=== PATIENT | male | born 1960 | race Caucasian/White ===

== ENCOUNTER 2018-06-22 11:47 | Emergency (ER) | payer OTHER ==
[2018-06-22 11:59] VITALS: BP 101/69; PULSE 61; BMI 23.6
--- NOTE | 2018-06-22 12:31 | PDOC ---
History of Present Illness - General Chief Complaint: Injury Stated Complaint: LEFT HAND THUMB INJURY Time Seen by Provider: 06/22/18 12:00 History Source: Patient - History of Present Illness Occurred: reports: this morning Upper Extremity Pain Location: left: thumb Method of Injury: reports: other Past History - Past Medical History Allergies/Adverse Reactions: Allergies Allergy/AdvReac Type Severity Reaction Status Date / Time No Known Allergies Allergy Unverified 06/22/18 11:59 Home Medications: Ambulatory Orders Cephalexin [Keflex] 500 mg PO Q6H #27 capsule 06/22/18 COPD: No - Immunization History Immunization Up to Date: No - Suicide/Smoking/Psychosocial Hx Smoking History: Never smoked Review of Systems - Review of Systems Neurological: No: Numbness, Tingling, Weakness *Physical Exam - Vital Signs Last Vital Signs Temp Pulse Resp BP Pulse Ox 61 18 101/69 97 06/22/18 11:56 06/22/18 11:56 06/22/18 11:56 06/22/18 11:56 - Physical Exam General Appearance: Yes: Appropriately Dressed. No: Apparent Distress HEENT: positive: Normal Voice Neck: positive: Supple Respiratory/Chest: negative: Respiratory Distress Extremity: positive: Other (~3 cm mostly linear lac alongside dorsum of L thumb crossing IP joint w/ ?gross tendon injury though both passive and active PATY, sensation intact) Integumentary: positive: Dry, Warm Neurologic: positive: Fully Oriented, Alert, Normal Mood/Affect Procedures - Laceration/Wound Repair Left Finger 1st digit Wound Length: 2.6 to 5.0 cm Wound Explored: clean Wound's Depth, Shape: into muscle Irrigated w/ Saline: Yes Betadine Prep: Yes (20 min betadine soak) Anesthesia: 1% Lidocaine Amount of Anesthetic (ccs): 10 (including finger block ) Wound Repaired With: Sutures Suture Size/Type: 4:0 (1) Number of Sutures: 10 Sterile Dressing Applied: Yes Medical Decision Making - Medical Decision Making 06/22/18 12:30 58-year-old male, no significant history, 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 Denies any sensory changes. Unsure of tetanus status per pt. After local wound care, including betadine soak for 20 minutes, there is gross extensor tendon injury on wound inspection per discussion with Dr. Vitale who also inspected wound. Pictures of injury were sent to Dr. Navarro of hand, who states pt most likely have a partial extensor tendon injury and recommends closing wound in ED and have patient following up with him on Saturday. 06/22/18 13:43 Pt s/p wound closure with dressing in place. Splint also given for further protection of partial extensor tendon injury. Tetanus updated and first dose of Keflex given in ED. Patient was discharged in stable condition to follow-up with hand on Saturday. Strict return precaution given to pt 06/22/18 13:48 *DC/Admit/Observation/Transfer Diagnosis at time of Disposition: Partial tear of tendon Finger laceration Qualifiers: Encounter type: initial encounter Finger: thumb Damage to nail status: without damage Foreign body presence: without foreign body Laterality: left Qualified Code(s): S61.012A - Laceration without foreign body of left thumb without damage to nail, initial encounter - Discharge Dispostion Disposition: HOME Condition at time of disposition: Good - Prescriptions Prescriptions: Cephalexin [Keflex] 500 mg PO Q6H #27 capsule - Referrals Referrals: Patrice Liang MD [Staff Physician] - - Patient Instructions Printed Discharge Instructions: Laceration Repair, Finger Extensor Tendon Injury Additional Instructions: Keep dressing in place for at least 24 hours after which one can be opened to air. You can gently clean wound with mild soap and water after 24 hours to prevent crusting over the suture knots. Given that your injury is located over your thumb joint and you have a partial tear of your tendon in that finger. You mostly want to keep wound covered and keep splint in place till you can see Dr. Liang of surgery on Saturday. Call Saturday for an appointment Return in 2 days for redness, discharge or fever Take antibiotics as directed You were given a tetanus injection today - Post Discharge Activity
[2018-06-22] MEDS ORDERED: IBUPROFEN 400 MG TABLET (FP) PO ONE ×2 (12:55→13:13)
[2018-06-22] MEDS ORDERED: CEPHALEXIN MONOHYDRATE 500 MG CAPSULE (UD) ONE (13:30)
[2018-06-22] MEDS ORDERED: CEPHALEXIN MONOHYDRATE 500 MG CAPSULE (UD) PO ONE (13:31)
[2018-06-22] MEDS ORDERED: DIPHTH,PERTUSS(ACELL),TET 0.5 ML DISP.SYRIN IM ONE (13:31)
== END 2018-06-22 13:43 | disposition home or self-care (01) ==
LOC: JERFT 11:47
PROC: 0HQGXZZ Repair Left Hand Skin, External Approach (ICD-10-PCS; principal; 2018-06-22)
PROC: 3E0234Z Introduction of Serum, Toxoid and Vaccine into Muscle, Percutaneous Approach (ICD-10-PCS; 2018-06-22)
PROC: 0HQGXZZ Repair Left Hand Skin, External Approach (ICD-10-PCS; 2018-06-22)
DX: S61.012A Laceration without foreign body of left thumb without damage to nail, initial encounter (principal); S56.322A Laceration of extensor or abductor muscles, fascia and tendons of left thumb at forearm level, initial encounter; W29.8XXA Contact with other powered hand tools and household machinery, initial encounter; Y93.89 Activity, other specified; Y92.89 Other specified places as the place of occurrence of the external cause; Y99.0 Civilian activity done for income or pay
CPT/HCPCS: 90715; 99282-25

== ENCOUNTER 2018-06-25 15:56 | Day surgery (SDC) | payer OTHER ==
[2018-06-25 16:05] VITALS: BMI 23.6
[2018-06-25] MEDS ORDERED: AMPICILLIN NA/SULBACTAM NA 3 GM in SODIUM CHLORIDE 100 ML IVPB ONE (16:12)
--- NOTE | 2018-06-25 16:12 | PDOC ---
History of Present Illness - History of Present Illness Initial Comments: 06/25/18 17:42 The patient is a 58 year old male, with a significant past medical history of extensor tendon injury, who presents to the emergency department at the request of Dr. Liang for a tendon repair today of his hand. The patient denies chest pain, shortness of breath, headache and dizziness. The patient denies fever, chills, nausea, vomit, diarrhea and constipation.The patient denies dysuria, frequency, urgency and hematuria. Allergies: NKDA Past surgical history: none reported Social history: denies ETOH and tobacco <Lisa Landers - Last Filed: 06/25/18 18:28> - General History Source: Patient Exam Limitations: No Limitations <Olinda Bautista - Last Filed: 06/25/18 18:38> - General Chief Complaint: Injury Stated Complaint: RECHECK, FINGER INJURY Time Seen by Provider: 06/25/18 16:12 Past History <Lisa Landers - Last Filed: 06/25/18 18:28> - Past Medical History COPD: No - Immunization History Immunization Up to Date: No - Suicide/Smoking/Psychosocial Hx Smoking History: Never smoked Have you smoked in the past 12 months: No Information on smoking cessation initiated: No Hx Alcohol Use: No Drug/Substance Use Hx: No Substance Use Type: None <Olinda Bautista - Last Filed: 06/25/18 18:38> - Past Medical History Allergies/Adverse Reactions: Allergies Allergy/AdvReac Type Severity Reaction Status Date / Time No Known Drug Allergies Allergy Verified 06/25/18 16:41 MOLDY CHEESE Allergy Uncoded 06/25/18 16:40 Home Medications: Ambulatory Orders Cephalexin [Keflex] 500 mg PO Q6H #27 capsule 06/22/18 Review of Systems - Review of Systems Able to Perform ROS?: Yes Comments:: 06/25/18 18:28 CONSTITUTIONAL: Absent: fever, no chills, no fatigue EYES: Absent: visual changes ENT: Absent: ear pain, no sore throat CARDIOVASCULAR: Absent: chest pain, no palpitations RESPIRATORY: Absent: cough, no SOB GASTROINTESTINAL: Absent: abdominal pain, no nausea, no vomiting, no constipation, no diarrhea GENITOURINARY: Absent: dysuria, no frequency, no hematuria MUSCULOSKELETAL: Absent: back pain, no arthralgia, no myalgia SKIN: Absent: rash NEURO: Absent: headache <Lisa Landers - Last Filed: 06/25/18 18:28> *Physical Exam - Vital Signs Last Vital Signs Temp Pulse Resp BP Pulse Ox 98 F 79 16 133/60 100 06/25/18 16:03 06/25/18 16:03 06/25/18 16:03 06/25/18 16:03 06/25/18 16:03 - Physical Exam Comments: 06/25/18 18:28 GENERAL: The patient is in no acute distress. HEAD: Normal with no signs of trauma. EYES: PERRLA, EOMI, sclera anicteric, conjunctiva clear. ENT: Ears normal, nares patent, oropharynx clear without exudates. Moist mucous membranes. NECK: Normal range of motion, supple without lymphadenopathy, JVD, or masses. LUNGS: Breath sounds equal, clear to auscultation bilaterally. No wheezes, and no crackles. HEART:Regular rate and rhythm, normal S1 and S2 without murmur, rub or gallop. ABDOMEN: Soft, nontender, normoactive bowel sounds. No guarding, no rebound. No masses palpable. EXTREMITIES: (+) left thumb laceration to dorsal aspect. Left hand swelling. Left hand is midly tender surrounding the thumb. Otherwise, Normal range of motion No clubbing or cyanosis. No erythema, or tenderness. NEUROLOGICAL: Cranial nerves II through XII grossly intact. Normal speech. No focal neurological deficits. MUSCULOSKELETAL: Back non-tender to palpation, no CVA tenderness SKIN: (+) left thumb laceration. Warm, Dry, normal turgor, no rashes or lesions noted. <Lisa Landers - Last Filed: 06/25/18 18:28> - Vital Signs Last Vital Signs Temp Pulse Resp BP Pulse Ox 98 F 79 16 133/60 100 06/25/18 16:03 06/25/18 16:03 06/25/18 16:03 06/25/18 16:03 06/25/18 16:03 <Olinda Bautista - Last Filed: 06/25/18 18:38> ED Treatment Course - LABORATORY CBC & Chemistry Diagram: 06/25/18 16:30 06/25/18 16:30 - ADDITIONAL ORDERS Additional order review: Laboratory Results 06/25/18 06/25/18 06/25/18 16:30 16:30 16:30 PT with INR 10.70 INR 0.95 Sodium 143 Potassium 4.2 Chloride 106 Carbon Dioxide 27 Anion Gap 10 BUN 11 Creatinine 0.9 Creat Clearance w eGFR > 60 Random Glucose 89 Calcium 9.5 Total Bilirubin 0.8 AST 28 ALT 46 Alkaline Phosphatase 55 Total Protein 7.6 Albumin 4.4 Blood Type B POSITIVE 06/25/18 16:30 RBC 5.41 MCV 88.8 MCHC 34.2 RDW 13.0 MPV 8.1 Neutrophils % 60.5 Lymphocytes % 30.5 Monocytes % 7.5 Eosinophils % 1.0 Basophils % 0.5 - Medications Given in the ED: ED Medications Discontinued Medications Generic Name Dose Route Start Last Admin Trade Name Freq PRN Reason Stop Dose Admin Ampicillin Sodium/Sulbactam 100 mls @ 200 mls/hr 06/25/18 16:12 06/25/18 17: 00 Sodium 3 gm/ Sodium Chloride IVPB 06/25/18 16:41 200 mls/hr ONCE ONE Administration <Lisa Landers - Last Filed: 06/25/18 18:28> - LABORATORY CBC & Chemistry Diagram: 06/25/18 16:30 06/25/18 16:30 <Olinda Bautista - Last Filed: 06/25/18 18:38> Medical Decision Making - Medical Decision Making 06/25/18 18:37 Laboratory Tests 06/25/18 06/25/18 06/25/18 16:30 16:30 16:30 WBC 8.3 Hgb 16.4 Hct 48.1 Plt Count 242 INR 0.95 BUN 11 Creatinine 0.9 58 yo M s/p circular saw injury to the left thumb with partial tendon injury Pt sent to the ER for transfer for operative repair Clinical Impression: tendon injury, repeat presentation <Olinda Bautista - Last Filed: 06/25/18 18:38> *DC/Admit/Observation/Transfer - Attestations Scribe Attestion: 06/25/18 17:43 Documentation prepared by Lisa Landers, acting as auditor medical claims for Olinda Bautista MD <Lisa Landers - Last Filed: 06/25/18 18:28> - Discharge Dispostion Decision to Admit order: Yes <Olinda Bautista - Last Filed: 06/25/18 18:38> Diagnosis at time of Disposition: Finger laceration - Discharge Dispostion Condition at time of disposition: Stable
[2018-06-25] MEDS ORDERED: IBUPROFEN 600 MG TABLET (FP) PO PRN ×2 (16:37→23:09)
[2018-06-25] MEDS ORDERED: MORPHINE SULFATE 2 MG/ML VIAL IVPUSH PRN ×2 (16:37→23:09)
[2018-06-25] MEDS ORDERED: LACTATED RINGERS SOLUTION 1,000 ML IV SCH (16:45)
[2018-06-25 16:57] LABS: BASO % 0.5 % (0-2.0); HEMATOCRIT 48.1 % (35.4-49); HEMOGLOBIN 16.4 GM/dL (11.7-16.9); LYMPH % 30.5 % (8-40); MCH 30.4 pg (25.7-33.7); MCHC 34.2 g/dl (32.0-35.9); MEAN CELL VOLUME 88.8 fl (80-96); MEAN PLT VOLUME 8.1 fl (7.5-11.1); MONO % 7.5 % (3.8-10.2); NEUT % 60.5 % (42.8-82.8); PLATELET COUNT 242 K/MM3 (134-434); RBC 5.41 M/mm3 (4.00-5.60); WHITE BLOOD COUNT 8.3 K/mm3 (4.0-10.0)
[2018-06-25 17:04] LABS: ALBUMIN 4.4 g/dl (3.4-5.0); ANION GAP 10 (8-16); BILIRUBIN,TOTAL 0.8 mg/dL (0.2-1.0); BLOOD UREA NITROGEN 11 mg/dL (7-18); CALCIUM 9.5 mg/dL (8.5-10.1); CHLORIDE 106 mmol/L (98-107); CO2 27 mmol/L (21-32); CREATININE 0.9 mg/dL (0.7-1.3); GLUCOSE,RANDOM 89 mg/dL (74-106); SGPT/ALT 46 U/L (12-78); SODIUM 143 mmol/L (136-145); TOT PROT 7.6 g/dl (6.4-8.2)
[2018-06-25 17:05] LABS: ALK PHOS 55 U/L (45-117)
[2018-06-25 17:10] LABS: INR 0.95 (0.83-1.09); PROTHROMBIN TIME (PATIENT) 10.7 SEC (9.7-13.0)
[2018-06-25 17:18] LABS: POTASSIUM 4.2 mmol/L (3.5-5.1); SGOT/AST 28 U/L (15-37)
--- NOTE | 2018-06-25 17:35 | HP ---
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 Denies any sensory changes. Had a tetanus booster 06/22/2018. After local wound care, including betadine soak for 20 minutes, there is gross extensor tendon injury. The thumb could not be extended. We were scheduled to assess and treat. History Source: Patient, Medical Record Limitations to Obtaining History: No Limitations - Smoking History Smoking history: Never smoked Have you smoked in the past 12 months: No - Alcohol/Substance Use Hx Alcohol Use: No Home Medications - Allergies Allergies/Adverse Reactions: Allergies Allergy/AdvReac Type Severity Reaction Status Date / Time No Known Drug Allergies Allergy Verified 06/25/18 16:41 MOLDY CHEESE Allergy Uncoded 06/25/18 16:40 - Home Medications Home Medications: Ambulatory Orders Cephalexin [Keflex] 500 mg PO Q6H #27 capsule 06/22/18 Review of Systems - Review of Systems Constitutional: denies: Chills, Fever Eyes: denies: Blurred Vision, Recent Change in Vision HENT: denies: Difficult Swallowing, Throat Pain Neck: denies: Decreased ROM, Lumps, Tenderness Cardiovascular: denies: Chest Pain, Palpitations Respiratory: denies: Cough, SOB Gastrointestinal: denies: Abdominal Pain, Constipation, Diarrhea Genitourinary: denies: Burning, Discharge, Dysuria Breasts: reports: No Symptoms Reported. denies: Pain Musculoskeletal: reports: Extremity Pain (left hand). denies: Back Pain, Muscle Pain, Muscle Weakness Integumentary: denies: Eczema, Erythema Neurological: denies: Seizure, Syncope Endocrine: denies: Unexplained Weight Gain, Unexplained Weight Loss Hematology/Lymphatic: denies: Easily Bruised, Excessive Bleeding Psychiatric: denies: Anxiety, Depression Physical Examination Vital Signs: Vital Signs Temperature 98 F 06/25/18 16:03 Pulse Rate 79 06/25/18 16:03 Respiratory Rate 16 06/25/18 16:03 Blood Pressure 133/60 06/25/18 16:03 O2 Sat by Pulse Oximetry (%) 100 06/25/18 16:03 Vital Signs Period Temp Pulse Resp BP Sys/Lopez Pulse Ox Last 24 Hr 98 F 79 16 133/60 100 Constitutional: Yes: Well Nourished, No Distress, Calm Eyes: Yes: Conjunctiva Clear, EOM Intact HENT: Yes: Atraumatic, Normocephalic Neck: Yes: Supple, Trachea Midline Cardiovascular: Yes: Regular Rate and Rhythm, S1, S2 Respiratory: Yes: Regular, CTA Bilaterally Gastrointestinal: Yes: Normal Bowel Sounds, Soft ...Rectal Exam: Yes: Deferred Renal/: No: CVA Tenderness - Right Musculoskeletal: No: Joint Swelling, Muscle Pain, Muscle Weakness Extremities: No: Cool, Cyanosis Edema: Yes Edema: LUE: 1+ Peripheral Pulses WNL: Yes Peripheral Pulses: Left Radial: 2+, Right Radial: 2+, Left Doralis Pedis: 2+, Right Dorsalis Pedis: 2+ Integumentary: No: Jaundice Wound/Incision: Yes: Clean/Dry, Well Approximated, Sutures Intact, Dressing Dry and Intact (left thumb splint) Labs: CBC, BMP 06/25/18 16:30 06/25/18 16:30 Imaging - Results X-ray: Report Reviewed, Image Reviewed Problem List - Problems (1) Unspecified injury of extensor or abductor muscles, fascia and tendons of left thumb at forearm level, sequela Assessment/Plan: 58yo RHD male with Left thumb laceration zone III-IV NPO and IVF hydration IV antibiotics Discussed with patient risks, benefits and alternatives of Exploration and debridement of left thumb wound, repair of extensor tendons, including but not limited to bleeding, infection, injury to adjacent structures, loss of function , amputation, need for further procedures; alternatives include antibiotics, delayed or no surgery - risks of this include failure of nonoperative therapy, loss of function, amputation, recurrence. Patient desires to proceed with operation - will take to OR for above. Informed consent signed for same. Code(s): S56.302S - UNSP INJ EXTN/ABDR MUSC/FASC/TEND OF L THM AT FORARM LV, SQLA (2) Laceration of extensor muscle, fascia and tendon of left thumb at wrist and hand level, initial encounter Code(s): S66.222A - LACERAT EXTENSOR MUSC/FASC/TEND L THM AT WRS/HND LV, INIT (3) Other injury of extensor or abductor muscles, fascia and tendons of left thumb at forearm level, initial encounter Code(s): S56.392A - INJ EXTN/ABDR MUSC/FASC/TEND OF L THM AT FORARM LV, INIT
--- NOTE | 2018-06-25 17:50 | OP ---
Operative Note - Note: Operative Date: 06/25/18 Pre-Operative Diagnosis: Laceration of Left thumb zone III Operation: Exploration of left thumb laceration, Debridement for devitalized tissue, Primary repair of 60% laceration of extensor pollicis longus tendon Findings: 60% laceration of left extensor pollicis longus. irregular cut with ethibond modified mojica repair. TP 250mmHg TT 25mins Post-Operative Diagnosis: Same as Pre-op Surgeon: Patrice Liang Anesthesiologist/SR. PAYROLL MANAGER: Jere Buck Anesthesia: General, Local (0.5% marcaine 20ml) Specimens Removed: none Estimated Blood Loss (mls): 2 Instrument used (Debridements only): scissors and scalpel Fluid Volume Replaced (mls): 300 (LR) Operative Report Dictated: Yes
--- NOTE | 2018-06-25 17:51 | DS ---
Physical Examination Vital Signs: Vital Signs Temperature 98 F 06/25/18 16:03 Pulse Rate 79 06/25/18 16:03 Respiratory Rate 16 06/25/18 16:03 Blood Pressure 133/60 06/25/18 16:03 O2 Sat by Pulse Oximetry (%) 100 06/25/18 16:03 Vital Signs Period Temp Pulse Resp BP Sys/Lopez Pulse Ox Last 24 Hr 98 F 79 16 133/60 100 Findings/Remarks: Stable postoperatively. pain is controlled. voiding. Constitutional: Yes: Well Nourished, No Distress, Calm Eyes: Yes: Conjunctiva Clear, EOM Intact HENT: Yes: Atraumatic, Normocephalic Neck: Yes: Supple, Trachea Midline Cardiovascular: Yes: Regular Rate and Rhythm, S1, S2 Respiratory: Yes: Regular, CTA Bilaterally Gastrointestinal: Yes: Normal Bowel Sounds, Soft. No: Tenderness ...Rectal Exam: Yes: Deferred Renal/: No: CVA Tenderness - Left, CVA Tenderness - Right Musculoskeletal: No: Muscle Pain, Muscle Weakness Extremities: No: Cool, Cyanosis Edema: Yes Edema: LUE: 1+ Peripheral Pulses WNL: Yes Peripheral Pulses: Left Radial: 2+, Right Radial: 2+, Left Doralis Pedis: 2+, Right Dorsalis Pedis: 2+ Integumentary: Yes: Incision. No: Jaundice, Rash, Tattoos Wound/Incision: Yes: Clean/Dry, Well Approximated, Dressing Dry and Intact Neurological: Yes: Alert, Oriented Psychiatric: Yes: Alert, Oriented Labs: CBC, BMP 06/25/18 16:30 06/25/18 16:30 Discharge Summary Reason For Visit: RECHECK, FINGER INJURY Current Active Problems Finger laceration (Acute) Laceration of extensor muscle, fascia and tendon of left thumb at wrist and hand level, initial encounter (Acute) Other injury of extensor or abductor muscles, fascia and tendons of left thumb at forearm level, initial encounter (Acute) Unspecified injury of extensor or abductor muscles, fascia and tendons of left thumb at forearm level, sequela (Acute) Procedures: Principal: Left thumb repair of extensor tendon Other Procedures: IV antibiotics Hospital Course: Admitted for an urgent surgical procedure. Uneventful surgical repair. stable for discharge home Condition: Improved - Instructions Diet, Activity, Other Instructions: Postoperative instructions: You had a Repair of extensor tendon left Thumb on 06/25/[address] Patrice Liang of [facility]. Activity: Resume your usual activities gradually, but no heavy exertion or lifting more than 10-15 pounds for 4-6 weeks. Please keep splint in place clean and dry until first followup appointment. Eat lightly at first, but advance to your usual diet as tolerated. Pain: For pain, you may use and alternate Tylenol (acetaminophen) and/or ibuprofen every 6 hours each as needed; this means that you can take one OR the other at 3-hour intervals. If you are prescribed a Tylenol/narcotic combination for severe pain, use it instead of plain Tylenol as needed and switch back when your pain starts decreasing. Do not take more than 4000mg of acetaminophen in a day. Take medications as prescribed or indicated on the labeling. Follow-up: You will need to identify a hand, orthopedic, or plastic surgeon to follow-up with consider contacting you insurance carrier. My office will provide all records to you designated provider. Call Dr. Liang' office at . Call the office if you have: * increasing pain not responsive to pain medication * fever of 101F or higher * unusual or increasing bleeding or drainage from wounds * increasing redness or swelling at wound sites Also, see your primary medical doctor within 1-2 weeks. Disposition: HOME - Home Medications Comprehensive Discharge Medication List: Ambulatory Orders Cephalexin [Keflex] 500 mg PO Q6H #27 capsule 06/22/18
[2018-06-25] MEDS ORDERED: ceFAZolin SODIUM 1 GM VIAL IVPB ONE (21:15)
[2018-06-25] MEDS ORDERED: PROPOFOL 20 ML ONE ×2 (21:21→21:22)
[2018-06-25] MEDS ORDERED: ceFAZolin SODIUM 1 GM VIAL ONE (21:23)
[2018-06-25] MEDS ORDERED: MIDAZOLAM HCL 2 MG/2 ML SINGLE DOSE VIAL ONE (21:54)
[2018-06-25] MEDS ORDERED: ACETAMINOPHEN 325 MG TABLET (FP) PO PRN (22:19)
[2018-06-25] MEDS ORDERED: ONDANSETRON 4 MG/2 ML VIAL IVPUSH PRN (22:19)
[2018-06-25 23:09] VITALS: TEMP 98.2
[2018-06-25 23:16] VITALS: BP 129/69; PULSE 50
--- NOTE | 2018-06-26 00:01 | OP ---
DATE OF OPERATION: 06/25/2018 PREOPERATIVE DIAGNOSIS: Laceration zone 3, left thumb. POSTOPERATIVE DIAGNOSIS: Laceration zone 3, left thumb. PROCEDURE: Exploration left thumb laceration, debridement of devitalized tissue, primary repair of 60% irregular laceration extensor pollicis longus tendon. ATTENDING SURGEON: Patrice Liang M.D. SENIOR IT SECURITY ANALYST: None. ANESTHESIOLOGIST: Jere Buck D.O. ANESTHESIA: General with local. Local consisted of 1 % Marcaine as well as 20 mL administered in the area block fashion. ESTIMATED BLOOD LOSS: 2 mL TOURNIQUET PRESSURE: 250 mmHg TOURNIQUET TIME: 25 minutes INTRAVENOUS FLUID ADMINISTERED: 300 mL crystalloid, it was LR INSTRUMENTS USED FOR DEBRIDEMENT: Scissors and scalpel BRIEF FINDINGS: There was a 60% irregular laceration of the dorsum zone 3, extensor pollicis longus tendon irregular cut, was repaired with Ethibond in a modified Fair fashion burying the knots. Care was taken to splint the patient in neutral extension thumb spica. INDICATION: The patient is a 58-year-old male presenting in the subsequent followup for left thumb in zone 3. He was seen 3 days ago. 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 He is right hand dominant. He was counseled regarding risks, benefits, and alternatives to surgical repair, signed informed consent, was taken to procedure. BRIEF PROCEDURE: Patient is brought to the operating room, placed in the supine position on the operating table with the left arm extended at 90 degrees perpendicular to body midline axis. Lower extremity SCDs placed to compression. Patient was administered 2 g of Ancef. He was provided with supplemental oxygen and provided with sedation from anesthesia. Once stable, anesthetized, he was prepped and draped into a standard surgical field. We began with a formal timeout, identifying the operative site and digit. With all parties in agreement, we began first with a dorsal Carol incision over the laceration to extend it and explore completely the extent of the laceration. It was incised with a 15 blade scalpel after the tourniquet was inflated to a pressure of 250 mmHg with an Esmarch. It was deepened and widened through subcutaneous tissue. Bovie bipolar was used to control superficial venous vessels. The site was debrided of devitalized skin as well as some thrombosed dorsal veins and some bony debris as well. It was debrided with a rongeur, scissors and scalpel to clean edges, vital tissue. There was a 60% laceration which was irregular shaped but did have a proximal and distal end of extensor pollicis longus tendon in zone 3. The thumb was extended and held in position as modified Fair stitch was laid in and tied approximating the cut edges. Care was then taken to trim and bury the knots. Additional [id number] with Ethibond 3-0 stitch were used to approximate vertical divide in the extensor tendon as well. This was done approximating the edges after [place] was passed proximally and distally to insure that there were no tight adhesions to the bony structure below. There did appear to be some scoring on the cortex of the thumb proximal phalanx as well, this was also debrided of all bony tissue. After the extensor tendon repair, care was then taken to approximate the wound edges as well as the Carol extension to the injury. The wound was approximated with 4-0 nylon in interrupted fashion. Skin was cleaned with sterile dressings of Xeroform, sponges and cast padding were placed, at which point a thumb spica was applied with the patient in a position of neutral extension. Tourniquet pressure was released after application, he was awoken from anesthesia having tolerated procedure well, given instructions to follow up in a period of 2 weeks with a physician of his choosing in the [facility] area, which is [place] hometown. He was provided with prescription for antibiotics, a prescription for pain medication, and instructions to elevate the extremity. MD JEREMY Johnson/[id number]
--- NOTE | 2018-06-26 16:49 | EKG ---
Test Reason : Blood Pressure : / mmHG Vent. Rate : 062 BPM Atrial Rate : 062 BPM P-R Int : 148 ms QRS Dur : 084 ms QT Int : 412 ms P-R-T Axes : 078 022 002 degrees QTc Int : 418 ms NORMAL SINUS RHYTHM NORMAL ECG NO PREVIOUS ECGS AVAILABLE Confirmed by MICHAEL POON MD ([id number]) on 06/26/2018 3:49:54 PM Referred By: Confirmed By:MICHAEL POON MD
== END 2018-06-25 23:56 | disposition home or self-care (01) ==
LOC: JER 15:56 → JASUSAT 16:54 → J7W 23:01 → JASUSAT 23:56
PROC: 0LQ80ZZ Repair Left Hand Tendon, Open Approach (ICD-10-PCS; principal; 2018-06-25 19:35)
DX: S66.222A Laceration of extensor muscle, fascia and tendon of left thumb at wrist and hand level, initial encounter (principal); W31.2XXA Contact with powered woodworking and forming machines, initial encounter; Y93.89 Activity, other specified; Y92.89 Other specified places as the place of occurrence of the external cause; Y99.0 Civilian activity done for income or pay
CPT/HCPCS: 36415; 71046-TC-FY; 80053; 85025; 85610; 86850; 86900; 86901; 93005; 93010; 94760; 99284-25